=== PATIENT | female | born 1985 | race Caucasian/White ===

== ENCOUNTER 2017-11-13 15:44 | Emergency (ER) | payer BC ==
[2017-11-13 16:02] VITALS: O2SAT 99
[2017-11-13] MEDS ORDERED: Phenergan 25 MG INJ IM ONE (16:23)
[2017-11-13] MEDS ORDERED: DILAUDID 2 MG INJECTION IV ONE (16:23)
[2017-11-13] MEDS ORDERED: DILAUDID 2 MG INJECTION ONE (16:27)
[2017-11-13] MEDS ORDERED: Phenergan 25 MG INJ ONE (16:27)
--- NOTE | 2017-11-13 16:31 | ERPHSYRPT ---
- History of Present Illness Time Seen by Provider: 11/13/17 16:10 Source: patient Exam Limitations: clinical condition Patient Subjective Stated Complaint: headache, dizziness, nausea Triage Nursing Assessment: pt to er c/o headache since saturday, has hx of migraines, recently had IUD removed and had escalation of symptoms, no relief with usual meds or toradol in [employer] office Physician History: PATIENT WITH A HISTORY OF MIGRAINE HEADACHES FOR 9 YEARS, PERSISTENT RIGHT FRONTAL HEADACHE FOR 5 DAYS, HAS NO RELIEF WITH TORADOL INTRAMUSCULAR X 2 IN PRIMARY CARE PROVIDER,S OFFICE. PATIENT COMPLAINS OF NAUSEA BUT DENIES FEVER, NECK STIFFNESS, BLURRED VISION, OR,EMESIS. Timing/Duration: day(s) Quality: throbbing Head Pain Location: frontal Severity of Pain-Max: severe Severity of Pain-Current: severe Recent Head Trauma: chronic headaches Modifying Factors: Improves With: exposure to light, other (NAUSEA) Associated Symptoms: sensitive to light Previous symptoms: same symptoms as today Allergies/Adverse Reactions: No Known Drug Allergies Allergy (Verified 11/13/17 16:02) Home Medications: Sumatriptan Succinate [Imitrex] 25 mg PO 11/13/17 [History] Topiramate [Topamax] 11/13/17 [History] Hx Tetanus, Diphtheria Vaccination/Date Given: No Hx Influenza Vaccination/Date Given: No Hx Pneumococcal Vaccination/Date Given: No Immunizations Up to Date: No - Review of Systems Constitutional: No Fever, No Chills Eyes: No Symptoms Ears, Nose, & Throat: No Symptoms Respiratory: No Cough, No Dyspnea Cardiac: No Symptoms, No Chest Pain, No Edema, No Syncope Abdominal/Gastrointestinal: No Abdominal Pain, No Nausea, No Vomiting, No Diarrhea Genitourinary Symptoms: No Symptoms, No Dysuria Musculoskeletal: No Back Pain, No Neck Pain Skin: No Rash Neurological: Headache, No Dizziness, No Focal Weakness, No Sensory Changes Psychological: No Symptoms Endocrine: No Symptoms All Other Systems: Reviewed and Negative - Past Medical History Pertinent Past Medical History: No Neurological History: Migraines ENT History: No Pertinent History Cardiac History: No Pertinent History Respiratory History: No Pertinent History Endocrine Medical History: No Pertinent History Musculoskeletal History: No Pertinent History GI Medical History: No Pertinent History History: No Pertinent History Psycho-Social History: No Pertinent History Female Reproductive Disorders: Other Other Medical History: 2 VAGINAL CHILDBIRTHS - Past Surgical History Past Surgical History: No Neuro Surgical History: No Pertinent History Cardiac: No Pertinent History Respiratory: No Pertinent History Gastrointestinal: No Pertinent History Genitourinary: No Pertinent History Musculoskeletal: No Pertinent History Female Surgical History: No Pertinent History - Social History Smoking Status: Never smoker Exposure to second hand smoke: No Drug Use: none Patient Lives Alone: No - Female History Hx Last Menstrual Period: yesterday Hx Now: (UNKNOWN) - Nursing Vital Signs Nursing Vital Signs: Initial Vital Signs Temperature 99.1 F 11/13/17 15:55 Pulse Rate 86 11/13/17 15:55 Respiratory Rate 18 11/13/17 15:55 Blood Pressure 126/89 11/13/17 15:55 O2 Sat by Pulse Oximetry 99 11/13/17 15:55 Pain Scale Pain Intensity 10 - Physical Exam General Appearance: mild distress Eye Exam: PERRL/EOMI Ears, Nose, Throat Exam: normal ENT inspection, moist mucous membranes Neck Exam: normal inspection, supple, full range of motion, No meningismus Respiratory Exam: normal breath sounds, lungs clear Cardiovascular Exam: regular rate/rhythm, normal heart sounds Gastrointestinal/Abdominal Exam: soft, No tenderness, No distention Back Exam: normal inspection, normal range of motion Mental Status Exam: alert, oriented x 3, cooperative environmental assistant Exam: normal speech, PERRL, No facial droop Coordination/Gait Exam: normal cerebellar function Motor/Sensory Exam: no motor deficit, no sensory deficit DTR Exam: bicep (R): 2+, bicep (L): 2+, tricep (R): 2+, tricep (L): 2+, knee (R) : 2+, knee (L): 2+, ankle (R): 2+, ankle (L): 2+ Skin Exam: normal color, warm, dry, No rash SpO2: 99 Oxygen Delivery: Room Air - CT Exams Head CT Interpretation: Discussed w/radiologist, No/Intracranial Hemorrhag Ordered Tests: Active Orders 24 hr Category Date Time Status IV Insertion STAT Care 11/13/17 16:47 Active HEAD WITHOUT CONTRAST [CT] Stat Exams 11/13/17 16:20 Taken HCG,QUALITATIVE URINE Stat Lab 11/13/17 17:56 Completed Medication Summary Discontinued Medications Generic Name Dose Route Start Last Admin Trade Name Freq PRN Reason Stop Dose Admin Hydromorphone HCl 2 mg 11/13/17 16:23 05/09/18 16:32 Dilaudid 2 Mg Injection IV 11/13/17 16:24 2 mg STAT ONE Administration Hydromorphone HCl Confirm 11/13/17 16:27 Dilaudid 2 Mg Injection Administered 11/13/17 16:28 Dose 2 mg .ROUTE .STK-MED ONE Sodium Chloride 1,000 mls @ 999 mls/hr 11/13/17 16:47 11/13/17 16:50 Sodium Chloride 0.9% 1000 Ml IV 11/13/17 17:47 999 mls/hr .Q1H1M STA Administration Sodium Chloride Confirm 11/13/17 16:49 Sodium Chloride 0.9% 1000 Ml Administered 11/13/17 16:50 Dose 1,000 mls @ ud .ROUTE .STK-MED ONE Promethazine HCl 12.5 mg 11/13/17 16:23 11/13/17 16:33 Phenergan 25 Mg Inj IM 11/13/17 16:24 12.5 mg STAT ONE Administration Promethazine HCl Confirm 11/13/17 16:27 Phenergan 25 Mg Inj Administered 11/13/17 16:28 Dose 25 mg .ROUTE .STK-MED ONE Lab/Rad Data: Laboratory Results 11/13/17 Range/Units 17:56 Urine HCG, Qual NEGATIVE (Negative) - Progress Progress Note: 11/13/17 16:32 PATIENT HAS A HISTORY OF NO HEAD CT OR MRI EVALUATION OF HER HEAD ADMINISTERED DILAUDID 2MG/PHENERGAN 12.5MG IM Counseled pt/family regarding: need for follow-up, rad results - Departure Time of Disposition: 19:30 Departure Disposition: Home Clinical Impression: MIGRAINE CEPHALGIA Condition: Stable Critical Care Time: No Referrals: YANICK CAZARES NP [Primary Care Provider] - Additional Instructions: FIORICET WITH CODEINE EVERY 4 HOURS NEEDED FOR PAIN. CONSULT YOUR PRIMARY CARE PROVIDER FOR EVALUATION, TREATMENT AND REFERRAL TO NEUROLOGIST. RETURN TO EMERGENCY FOR INCREASING PAIN OR ONSET OF VOMITING. Prescriptions: Codeine/Butalbit/Acetamin/Caff [Fioricet-Cod [id number] Cap] 1 each PO Q4- 6HPRN PRN #10 capsule PRN Reason: Pain
[2017-11-13] MEDS ORDERED: Sodium Chloride 0.9% 1000 ML 1,000 ML IV STA (16:47)
[2017-11-13] MEDS ORDERED: Sodium Chloride 0.9% 1000 ML 1,000 ML ONE (16:49)
[2017-11-13 19:24] VITALS: BP 97/72; PULSE 85
--- NOTE | 2017-11-14 08:29 | XRAY ---
Indication: Migraine headaches. Multiple contiguous axial images obtained through the head without contrast. Comparison: None Normal appearing brain parenchyma, ventricles, and bony calvarium. Visualized paranasal sinuses and mastoid air cells are clear. Impression: Normal CT head without contrast exam. CT DI 70.10
== END 2017-11-13 19:39 | disposition home or self-care (01) ==
LOC: ED 15:44
DX: G43.909 Migraine, unspecified, not intractable, without status migrainosus (principal); Z79.899 Other long term (current) drug therapy
CPT/HCPCS: 36000; 70450; 84703; 96360; 96372; 96374; 96375; 99284; J1170; J2550